=== PATIENT | male | born 1960 | race Caucasian/White ===

== ENCOUNTER 2017-03-28 11:51 | Emergency (ER) | payer OTHER ==
--- NOTE | ~2017-03-28 | CR21 ---
[facility] A Service of [facility] & [facility] RADIOLOGY TEXT RESULTS PATIENT: ALETHEA IBARRA LOCATION: [facility] : 56 UNIT #: [id number] AGE: [address]: Nidhi Yu SEX: M ORDER DR: [id number] [facility]. [place], [place] [address] [id number] MR#: [id number] Acc #: [id number] NAME: ALETHEA IBARRA : 1960 SEX: M STUDY DATE/TIME: 03/28/2017 12:26 UNIT: [id number] ROOM: STUDY DESCRIPTION: CR Ankle Min 3 Views Rt Attending Physician: Nidhi Yu P.A.-C. Ordering Physician: Nidhi Yu P.A.-C. Primary Care Physician: No Primary Care Physician MEDICAL IMAGING REPORT This report is preliminary unless electronic signature is present EXAM Right ankle, 3 views, 03/28/17, 1226 hours. CLINICAL HISTORY Patient fell, twisting his ankle today with pain. COMPARISON None. FINDINGS AP, lateral and oblique views demonstrate marked lateral soft tissue swelling. There is a transverse nondisplaced fracture of the distal fibula approximately 2.3 cm proximal to the distal tip. This is below the level of the tibiotalar articulation by 8 mm. There is no disruption of the ankle mortise. The medial malleolus and the tibia are intact. IMPRESSION There is a transverse nondisplaced fracture with overlying soft tissue swelling at the distal fibula approximately 2.3 cm proximal to the distal tip of the fibula, but distal to the level of the tibiotalar articulation. The ankle mortise appears intact. Dictated by... Karen Buenrostro M.D. THIS IS AN ELECTRONICALLY VERIFIED REPORT Karen Buenrostro M.D. at 03/29/2017 9:31 AM HIRAM/deepak TD: 03/28/2017 17:55 JOB #: [id number] [facility] A Service of [facility] & [facility] RADIOLOGY TEXT RESULTS PATIENT: ALETHEA IBARRA LOCATION: [facility] #: [id number] : 56 UNIT #: [id number] AGE: [address]: Nidhi Yu SEX: M ORDER DR: MEDICAL IMAGING REPORT Page 1 of 1 COPY
== END 2017-03-28 13:26 | disposition home or self-care (01) ==
LOC: CED 11:51 → CFTX 11:51 → CED 13:11 → CFTX 13:26
DX: S82.64XA Nondisplaced fracture of lateral malleolus of right fibula, initial encounter for closed fracture (principal); R03.0 Elevated blood-pressure reading, without diagnosis of hypertension; K21.9 Gastro-esophageal reflux disease without esophagitis; F17.210 Nicotine dependence, cigarettes, uncomplicated; W19.XXXA Unspecified fall, initial encounter; Y93.89 Activity, other specified; Y92.69 Other specified industrial and construction area as the place of occurrence of the external cause; Y99.0 Civilian activity done for income or pay
CPT/HCPCS: 29515; 73610; 99283